=== PATIENT | female | born 1980 | race Caucasian/White ===

== ENCOUNTER → 2017-10-05 | Emergency (ER) | payer MEDICAID, OTHER ==
[~2017-10-05] MED LIST: ACETAMINOPHEN 500 MG TAB PO ONE; CLINDAMYCIN 900 MG/DEXTROSE 50 ML IV ONE; GENTAMICIN SULFATE IV ONE; IOPAMIDOL (ISOVUE-300) 100 ML BTL ONE; KETOROLAC 15 MG/1 ML SDV IVP ONE; METOCLOPRAMIDE 10 MG/2 ML VIAL IVP ONE; NS 1,000 ML IV ONE; NS IV ONE
--- NOTE | 2017-10-05 16:14 | EDPHY ---
H & P Stated Complaint: Pt. states nausea,MORATAYA,chills,bodyaches since last night. c-sec 09/19 Time Seen by Provider: 10/05/17 15:47 HPI/ROS: This patient reports a 2 day history of flu-like symptoms associated with headache nausea and dry heaves. She is 2 weeks from at 29 weeks for severe preeclampsia. She was treated in [place] with IV magnesium and was in the hospital for a week for further tx. Her girl is still in the NICU. She went home last night and felt poorly describing headache 8/10 intensity biparietal in location worse with movement associated with mild photophobia, nausea and dry heaves and generalized weakness. She tried ibuprofen 800 mg this morning at 7:00 a.m. Without significant improvement in her headache. No other exacerbating She has associated anorexia and myalgias. She had hypertension this morning with a blood pressure of 148/92. After labetalol 100 mg at 7:00 a.m. She arrives here normotensive. Her brought her here by private vehicle for further evaluation of the symptoms. Factors are noted. ROS: She felt warm last night with some chills intermittently. HEENT: No URI symptoms Pulmonary: No cough shortness of breath. No dyspnea. Cardiovascular: No leg swelling. No chest pain. No heart palpitations or lightheadedness GI: Incision is not painful. She reports decreased appetite today with nausea and dry he has but no actual vomiting. She has had normal bowel movements-last 1 yesterday. : No dysuria frequency urgency. She does have mild suprapubic cramping when she urinates up to 5/10 in intensity for 2 days. No vaginal discharge. No flank pain. No hematuria. No frequency urgency. Neuro: No focal numbness tingling or weakness. No confusion. Complete review of symptoms otherwise negative. Source: Patient, Family Exam Limitations: No limitations (The patient's helps provide history) - Personal History LMP (Females 10-55): Over 28 Days Ago Tetanus Vaccine Date: 2006 - Medical/Surgical History Hx Asthma: No Hx Chronic Respiratory Disease: No Hx Diabetes: No Hx Cardiac Disease: No Hx Renal Disease: No Hx Cirrhosis: No Hx Alcoholism: No Hx HIV/AIDS: No Hx Splenectomy or Spleen Trauma: No Other PMH: Med cu-tga-alwknjexz,HTN. SUrg-breast implants,c-sect x1 - Social History Smoking Status: Never smoked Alcohol Use: Other (None since before she was ) Drug Use: None Additional Social History: Here with her . They live in [place]. She has 3 children ranging in age from 16 to the - Physical Exam Exam: Physical exam: Vital signs are normal General: Patient is in no acute distress. HEENT: Is no external evidence of trauma on exam. Eyes: Pupils are equal and reactive to light. Extraocular motions are intact. Optic fundi: Clear with no papilledema or hemorrhage. Nose atraumatic. Ears: Clear bilaterally with no hemotympanum. Oropharynx: No dental trauma or malocclusion. No intraoral lacerations. Eyes: Pupils are equal and reactive to light. Extraocular motions are intact. Optic fundi: Clear with no papilledema or hemorrhage. Lungs: Clear to auscultation bilaterally Neck: Supple no meningismus. Cardiac: Regular rate and rhythm no murmur gallop or rub. Abdomen: Soft nontender no organomegaly Neuro: GCS of 15. Cranial nerves II through XII intact. Cerebellar exam is normal as judged by symmetric rapid hand movements bilaterally. No pronator drift. No sensory or motor deficits are appreciated. Initial differential diagnosis: UTI, diverticulitis, postsurgical complication , intra-abdominal abscess, endometritis, appendicitis, Migraine, tension headache, preeclampsia, tension headache, HELLP syndrome, [employer]PLI[employer] TECH[employer]ICIAN lesion, intracranial bleed Constitutional: Initial Vital Signs Temperature (C) 37.6 C 10/05/17 15:41 Heart Rate 127 H 10/05/17 15:41 Respiratory Rate 16 10/05/17 15:41 Blood Pressure 119/77 10/05/17 15:41 O2 Sat (%) 95 10/05/17 15:41 O2 Delivery Mode Room Air Allergies/Adverse Reactions: No Known Allergies Allergy (Verified 10/05/17 15:40) Home Medications: Medication Instructions Recorded Labetalol HCl [Trandate 100 mg (*)] 300 mg PO BID 10/05/17 Medical Decision Making - Diagnostics Imaging Results: Imaging Impressions Abdomen CT 10/05/17 17:06 Impression: Small amount of intrauterine and pelvic free fluid. No abscess identified. Results discussed with Dr. Brandon Alejandra. General information for patients regarding this examination can be found at [email or web address]. If you have questions or comments about this report, please contact me at (hospital) or [phone] (cell). Imaging: Discussed imaging studies w/ inbound call center representative Radiologist ED Course/Re-evaluation: IV normal saline bolus Toradol 15 mg IV Reglan and Benadryl IV Patient is aware that we seek a urine sample Labs: [place] [address]. Platelets are normal. H&H with minimal anemia otherwise normal. Comp metabolic panel reveals normal LFTs normal creatinine slightly low albumin. Otherwise normal. Urine dip reveals 2+ ketones, 2+ blood, 1+ protein, trace leukocytes. This is sent for urine Micro and urine culture. Her initial temperature is 37.6 degrees centigrade and on presentation she did not qualify as sepsis. However at 5:15 p.m. Recheck temperature shows a fever of 100.8. This and her tachycardia qualify her as sepsis without evidence of septic shock or severe sepsis at 1715 her headache is down to 5/10 with initial treatment. She is given Tylenol 1 g p.o. At the time of increased temperature I note The patient is noted to have a mildly erythematous fine sandpaper-like rash to her neck and upper shoulders part way through her course here. Her states that this is not a rash she has seen on her before. With her fever and tachycardia she meets sepsis criteria without evidence of end -organ injury or septic shock. Discussion: Her labs rule out HELLP syndrome at this point. Given this patient 's low-grade fever, leukocytosis and lower belly/pelvic tenderness suprapubic region left lower quadrant, I think that she warrants CT imaging at this time to evaluate for potential postsurgical complications such as abscess, retained foreign body or other intra-abdominal processes such as diverticulitis, appendicitis or other. I counseled patient regarding this and she is agreeable to CT imaging at 5:17 a.m. While she has preeclampsia, her blood pressure is well controlled on her labetalol. A review of prior history he reveals that visit prior to being with the blood pressure similar to her current blood pressure-120s over 70s. It is a bit concerning that she is spilling but a protein. After reviewing CT results, I will consult her OBGYN physician. CT abdomen pelvis rule out intra-abdominal abscess, diverticulitis. There is a small amount of fluid in the uterus extends into the cavity. Minimal amount of free fluid in the pelvis. Given combination of fever, fine erythematous rash and post status, and findings are most consistent with endometritis. I ordered IV clindamycin and gentamicin. Blood cultures and lactate are added. The rash is somewhat concerning for potential toxic shock syndrome. Currently she is hemodynamically stable. I spoke with Dr. Marta Blackwell, her OBGYN who agrees with treatment plan of clindamycin and gentamicin for endometritis and plan for admission to [facility]. Patient is agreeable to this plan. At 6:05 p.m. After 2 L saline her pulse went from 125-112. She remains hemodynamically stable. Her venous lactate is normal. Clindamycin and gentamicin IV - Data Points Laboratory Results: 10/05/17 10/05/17 10/05/17 18:18 17:00 16:02 POC Blood Source VENOUS Patient Temperature 37.9 DEGREES DEGREES POC VBG pH 7.41 (7.31-7.42) POC VBG pCO2 30 mmHg L mmHg (40-44) POC VBG pO2 41 mmHg H mmHg (35-40) POC VBG HCO3 19 mEq/L L mEq/L (22-26) POC VBG Total CO2 20 mEq/L L mEq/L (21-27) POC VBG Base Excess -6.0 mEq/L L mEq/L (-2.5-2.5) POC Mix VBG O2 Sat 76 % H % (65-75) POC Sodium 138 mEq/L mEq/L (135-145) POC Potassium 4.1 mEq/L mEq/L (3.3-5.0) POC Chloride 105.0 mEq/L mEq/L (97-110) POC Total CO2 24 mEq/L mEq/L (22-31) POC BUN 6 mg/dL L mg/dL (7-23) POC Creatinine 0.8 mg/dL mg/dL (0.6-1.0) POC Glucose 91 mg/dL mg/dL (70-100) POC Lactic Acid Kalpesh 0.5 mmol/L L mmol/L (0.7-2.1) POC Calcium 8.9 mg/dL mg/dL (8.5-10.4) POC Total Bilirubin 0.8 mg/dL mg/dL (0.1-1.4) POC AST 22 IU/L IU/L (14-46) POC ALT 23 IU/L IU/L (9-52) POC Alk Phosphatase 88 IU/L IU/L (38-126) POC Total Protein 7.1 g/dL g/dL (6.3-8.2) POC Albumin 3.3 g/dL L g/dL (3.5-5.0) Urine RBC 5-10 /hpf H /hpf (0-3) Urine WBC 3-5 /hpf H /hpf (0-3) Ur Epithelial Cells NONE SEEN /lpf /lpf (NONE-1+) Urine Bacteria TRACE /hpf H /hpf (NONE SEEN) Urine Mucus TRACE /lpf /lpf (NONE-1+) Medications Given: Discontinued Medications Acetaminophen (Tylenol) 1,000 mg PO EDNOW ONE Stop: 10/05/17 17:05 Last Admin: 10/05/17 17:18 Dose: 1,000 mg Diphenhydramine HCl (Benadryl Injection) 25 mg IVP EDNOW ONE Stop: 10/05/17 16:08 Last Admin: 10/05/17 16:14 Dose: 25 mg Sodium Chloride (Ns) 1,000 mls @ 0 mls/hr IV EDNOW ONE; Wide Open PRN Reason: Protocol Stop: 10/05/17 15:52 Last Admin: 10/05/17 15:50 Dose: 1,000 mls Sodium Chloride (Ns) 1,000 mls @ 0 mls/hr IV ONCE ONE; Wide Open PRN Reason: Protocol Stop: 10/05/17 17:04 Last Admin: 10/05/17 17:18 Dose: 1,000 mls Clindamycin Phosphate/Dextrose (Cleocin 900 Mg (Premix)) 50 mls @ 100 mls/hr IV EDNOW ONE PRN Reason: Protocol Stop: 10/05/17 18:14 Last Admin: 10/05/17 18:47 Dose: 50 mls Ketorolac Tromethamine (Toradol) 15 mg IVP EDNOW ONE Stop: 10/05/17 16:08 Last Admin: 10/05/17 16:18 Dose: 15 mg Metoclopramide HCl (Reglan Injection) 10 mg IVP EDNOW ONE Stop: 10/05/17 16:08 Last Admin: 10/05/17 16:22 Dose: 10 mg Point of Care Test Results: CBC CBC Collection Date 10/05/17 CBC Collection Time 15:50 WBC 11.1 RBC 4.05 HGB 12.1 HCT 37.3 PLT 327 Neut # 9.2 Neut 83.1 LYMPH # 1.4 LYMPH 12.3 Other WBC # 0.5 Other WBC 4.6 MCV 92.1 Chemistry 10/05/17 16:02 POC Sodium 138 mEq/L mEq/L (135-145) POC Potassium 4.1 mEq/L mEq/L (3.3-5.0) POC Chloride 105.0 mEq/L mEq/L (97-110) POC Total CO2 24 mEq/L mEq/L (22-31) POC BUN 6 mg/dL L mg/dL (7-23) POC Creatinine 0.8 mg/dL mg/dL (0.6-1.0) POC Glucose 91 mg/dL mg/dL (70-100) POC Calcium 8.9 mg/dL mg/dL (8.5-10.4) POC Total Bilirubin 0.8 mg/dL mg/dL (0.1-1.4) POC AST 22 IU/L IU/L (14-46) POC ALT 23 IU/L IU/L (9-52) POC Alk Phosphatase 88 IU/L IU/L (38-126) POC Total Protein 7.1 g/dL g/dL (6.3-8.2) POC Albumin 3.3 g/dL L g/dL (3.5-5.0) Blood Gas/Lactic Acid-Arterial 10/05/17 18:18 POC Blood Source VENOUS Blood Gas/Lactic Acid-Venous 10/05/17 18:18 POC VBG pH 7.41 (7.31-7.42) POC VBG pCO2 30 mmHg L mmHg (40-44) POC VBG pO2 41 mmHg H mmHg (35-40) POC VBG HCO3 19 mEq/L L mEq/L (22-26) POC VBG Total CO2 20 mEq/L L mEq/L (21-27) POC VBG Base Excess -6.0 mEq/L L mEq/L (-2.5-2.5) POC Mix VBG O2 Sat 76 % H % (65-75) POC Lactic Acid Kalpesh 0.5 mmol/L L mmol/L (0.7-2.1) Departure - Departure Disposition: Home, Routine, Self-Care Clinical Impression: endometritis, post- preeclampsia Sepsis Qualifiers: Sepsis type: sepsis due to unspecified organism Qualified Code(s): A41.9 - Sepsis, unspecified organism Condition: Fair Referrals: VIGNESH GUPTA MD [Other] - As per Instructions
[2017-10-05 19:37] VITALS: BP 107/77
== END | disposition home or self-care (01) ==
LOC: CED 15:33
DX: O14.95 Unspecified pre-eclampsia, complicating the puerperium (principal); E86.9 Volume depletion, unspecified; B95.1 Streptococcus, group B, as the cause of diseases classified elsewhere; O85 Puerperal sepsis
CPT/HCPCS: 74177-PO; 80053-PO; 83605-PO; 96365; J1200; J1885; J2765; Q9967